=== PATIENT | female | born 1995 | race Caucasian/White ===

== ENCOUNTER 2022-07-25 14:50 | Emergency (ER) | payer OTHER ==
[2022-07-25 15:43] VITALS: BP 106/58; PULSE 105; RESP 18; TEMP 98; BMI 25.7
[2022-07-25] MEDS ORDERED: ACETAMINOPHEN 500 MG TABLET (FP) PO ONE (16:03)
[2022-07-25] MEDS ORDERED: ACETAMINOPHEN 325 MG TABLET (FP) ONE (16:28)
[2022-07-25] MEDS ORDERED: AZITHROMYCIN 500 MG TABLET PO ONE (17:17)
[2022-07-25] MEDS ORDERED: DEXAMETHASONE SOD PHOSPHATE 4 MG/1 ML VIAL IVPUSH ONE (17:17)
[2022-07-25] MEDS ORDERED: DEXAMETHASONE SOD PHOSPHATE 4 MG/1 ML VIAL ONE (17:27)
[2022-07-25] MEDS ORDERED: AZITHROMYCIN 250 MG TABLET ONE (17:27)
== END 2022-07-25 18:42 | disposition home or self-care (01) ==
LOC: JER 14:50
PROC: 3E033GC Introduction of Other Therapeutic Substance into Peripheral Vein, Percutaneous Approach (ICD-10-PCS; principal; 2022-07-25)
DX: O98.512 Other viral diseases complicating pregnancy, second trimester (principal); J40 Bronchitis, not specified as acute or chronic; Z3A.24 24 weeks gestation of pregnancy
CPT/HCPCS: 0241U-QW; 71046-TC-FY; 99284-25

== ENCOUNTER 2022-09-08 19:44 | Emergency (ER) | payer OTHER ==
[2022-09-08 19:54] VITALS: RESP 16; BMI 27.3
[2022-09-08 21:22] LABS: EPI CELLS >36 /uL (0-25.1); HYALINE CASTS 3 /uL (0-3.1); PH,URINE 6.5 (5.0-8.0); URINE APPEARANCE CLOUDY; URINE BACTERIA 2419 /uL (0-1359); URINE BILIRUBIN NEGATIVE (NEGATIVE); URINE COLOR YELLOW; URINE GLUCOSE (UA) NEGATIVE (NEGATIVE); URINE KETONE 2+ (NEGATIVE); URINE LEUK ESTERASE 1+ (NEGATIVE); URINE NITRITE NEGATIVE (NEGATIVE); URINE PROTEIN TRACE (NEGATIVE); URINE RBC 5 /uL (0-23.9); URINE WBC 70 /uL (0-25.8)
[2022-09-08 21:46] LABS: URINE CRYSTALS PRESENT /hpf
[2022-09-08] MEDS ORDERED: CEPHALEXIN MONOHYDRATE 500 MG CAPSULE (UD) PO ONE (22:15)
[2022-09-08] MEDS ORDERED: CEPHALEXIN MONOHYDRATE 500 MG CAPSULE (UD) ONE (22:16)
[2022-09-08 22:29] LABS: SYPHILIS W/ RPR CONF NON-REACTIVE (NONREACTIVE)
[2022-09-08 23:03] LABS: HIV INTERPRETATION NEGATIVE (NEGATIVE)
[2022-09-08 23:09] VITALS: BP 113/64; PULSE 76; TEMP 97.9
== END 2022-09-09 01:37 | disposition home or self-care (01) ==
LOC: JER 19:44
DX: O23.593 Infection of other part of genital tract in pregnancy, third trimester (principal); Z3A.28 28 weeks gestation of pregnancy
CPT/HCPCS: 36415; 76801-TC; 76815; 81003; 86695; 86696; 86780; 87086; 87389; 87491; 87591; 87661; 99284-25